=== PATIENT | female | born 1995 | race Caucasian/White ===

== ENCOUNTER 2024-05-27 00:02 | Emergency (ER) | payer BC ==
[~2024-05-27] VITALS: Ht 167.6 cm; Wt 59.0 kg
[2024-05-27 02:15] VITALS: BP 134/68; TEMP 98.1; O2SAT 98
== END 2024-05-27 02:13 | disposition home or self-care (01) ==
LOC: ER 00:08
DX: G44.209 Tension-type headache, unspecified, not intractable (principal); D17.21 Benign lipomatous neoplasm of skin and subcutaneous tissue of right arm; K21.9 Gastro-esophageal reflux disease without esophagitis